=== PATIENT | male | born 1970 | race Caucasian/White ===

== ENCOUNTER 2019-03-14 15:38 | Emergency (ER) | payer BC, OTHER, SELFPAY ==
[2019-03-14] VITALS (7 sets, daily range): BP systolic 106–162; BP diastolic 82–101; PULSE 72–82; RESP 14–20; TEMP 36.5; O2SAT 99–100; BMI 37.3
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
[2019-03-14 15:51] LABS: Bedside Glucose 165 mg/dL (70-110)
[2019-03-14] MEDS: Diphth,Pertuss(Acell),Tet Vac 0.5 ML Vial IM (15:59)
[2019-03-14] MEDS: 0.9% Normal Saline 1,000 ML 1000 ML IV (15:59)
[2019-03-14] MEDS: Morphine 4 MG/ML Syringe IV (15:59)
[2019-03-14] MEDS: Ondansetron 4 MG/2 ML Vial IV (15:59)
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
[2019-03-14 16:26] LABS: Mucous, Urine 0 SEEN /hpf (<or=2+)
[2019-03-14] MEDS: Cefazolin 1 GM/50 ML BAG IV (16:39)
[2019-03-14 16:40] LABS: Color, Urine Yellow (Yellow); Glucose, Dipstick 1000 mg/dl (Normal); Ketone-Dipstick 15 mg/dl (Negative); Leukocyte Esterase-Dipstick Negative /ul (Negative); Nitrite-Dipstick Negative (Negative); Occult Blood-Urine 250 /ul (Negative); Protein-Dipstick 30 mg/dl (Negative); Urine Bilirubin Dipstick Negative (Negative); Urine Clarity Clear (Clear); Urine Urobilinogen Normal (Normal)
[2019-03-14 16:47] LABS: Bacteria RARE /hpf (None Seen); Red Blood Cells-Urine 25-50 SEEN /hpf (0-5); Squamous Epithelial Cells - UA 0-5 SEEN /hpf (0-5); White Blood Cells 0-5 SEEN /hpf (0-5)
[2019-03-14 17:00] LABS: Anion Gap 5 (5-15); BUN 22 mg/dL (7-18); BUN/Creat Ratio 23.8 RATIO (10-20); Calcium,Total 8.5 mg/dL (8.5-10.1); Chloride 109 mmol/L (98-107); Creatinine, Serum 0.92 mg/dL (0.70-1.30); EST Glomerular Filtration Rate 92 mL/min (>60); Est Glom Filt Rate - Afr Amer 111 mL/min (>60); Estimated Creatinine Clearance 100.29 ml/min; Glucose 146 mg/dL (74-106); Potassium 3.3 mmol/L (3.5-5.1); Sodium Level 139 mmol/L (136-145)
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
[2019-03-14 17:07] LABS: Absolute Lymphocyte Count 3.15 X10^3/ul (0.83-4.51); Absolute Neutrophil Count 5.9 X10^3/uL (2.0-7.7); Basophil# 0.04 X10^3/uL; Basophil% 0.4 % (0-1); Hematocrit 44.5 % (40-54); Hemoglobin 14.9 g/dl (13.0-16.5); Lymphocyte # 3.15 X10^3/ul (4.0); Lymphocyte % 31.1 % (19-41); Mean Corp Hgb Conc 33.5 g/gl (32-36); Mean Corpuscular Hgb 31.1 pg (27.0-32.0); Mean Corpuscular Volume 92.9 fL (80-94); Mean Platelet Vol. 10.8 fl (6.2-12.0); Monocyte# 0.86 X10^3/uL; Monocyte% 8.5 % (0-10); Neutrophil # 5.86 X10^3/uL (2.7-7.7); Neutrophil % 57.7 % (47-70); Platelet Count 237 K/mm3 (150-450); RBC Distribution Width CV 13.4 % (11.6-14.6); RBC Distribution Width SD 45.5 fl (35.1-43.9); Red Blood Count 4.79 M/mm3 (4.6-6.2); White Blood Count 10.1 K/mm3 (4.4-11.0)
[2019-03-14 17:08] LABS: POSITIVE COUNT NO; POSITIVE DIFFERENTIAL NO; POSITIVE MORPHOLOGY NO
[2019-03-14 17:22] LABS: International Normalized Ratio 1.1; Prothrombin Time (Protime)PT. 13.5 SECONDS (11.7-14.9)
--- NOTE | 2019-03-14 21:04 | ED.RN ---
OPENED CHART PER REQUEST OF [facility] (JASMYN GUZMAN)REFERENCE FOLLOW UP.
== END 2019-03-14 16:50 | disposition short-term general hospital (02) ==
PROVIDERS: Emergency Provider Emergency Medicine
DX: S02.19XA Other fracture of base of skull, initial encounter for closed fracture (principal); S06.6X9A Traumatic subarachnoid hemorrhage with loss of consciousness of unspecified duration, initial encounter; S61.412A Laceration without foreign body of left hand, initial encounter; S80.01XA Contusion of right knee, initial encounter; V24.4XXA Motorcycle driver injured in collision with heavy transport vehicle or bus in traffic accident, initial encounter; Y93.9 Activity, unspecified; Y92.9 Unspecified place or not applicable; Y99.9 Unspecified external cause status; Z23 Encounter for immunization; E11.9 Type 2 diabetes mellitus without complications; F31.9 Bipolar disorder, unspecified; Z79.84 Long term (current) use of oral hypoglycemic drugs; Z79.899 Other long term (current) drug therapy
CPT/HCPCS: 51702; 70450; 71045; 72125; 73080; 73130; 73560; 74177; 80048; 81001; 82962; 85025; 85610; 90715; 96374; 96375; 99285; J7030; Q9967; A4216; J2405

== ENCOUNTER 2019-03-20 19:45 | Inpatient (IN) | payer BC, OTHER, SELFPAY ==
[2019-03-14 15:39] VITALS: BMI 37.3
[2019-03-20 20:00] VITALS: BP 146/95; PULSE 65; RESP 18; TEMP 36.9; O2SAT 100; BMI 36.9
[2019-03-20 21:40] LABS: Bedside Glucose 351 mg/dL (70-110)
[2019-03-20 22:00] VITALS: BP 142/74
[2019-03-20] MEDS: oxyCODONE 5 MG Tablet PO (22:34)
[2019-03-20] MEDS: Divalproex (ER) 250 MG Tablet 500 MG PO (22:34)
[2019-03-20] MEDS: levETIRAcetam 1,000 MG Tablet 1000 MG PO (22:34)
[2019-03-20] MEDS: MELATONIN 3 MG TABLET 6 MG PO (22:34)
[2019-03-20] MEDS: LORazepam 0.5 MG Tablet PO (22:35)
[2019-03-20 23:26] LABS: Bedside Glucose 279 mg/dL (70-110)
--- NOTE | 2019-03-20 23:58 | PCM.HP.STD ---
History of Present Illness The patient is a 48 year old M [] Past Medical History Allergies niacin Allergy (Verified 03/14/19 15:44) Rash Home Medications: Ambulatory Orders Medication Instructions Recorded Atorvastatin Calcium [Lipitor] 40 mg PO QHS 03/14/19 Divalproex (ER) [Depakote ER] 500 mg PO TID 03/14/19 Dulaglutide [Trulicity] 1.5 mg SQ QWEEK 03/14/19 Levothyroxine Sodium [Unithroid] 300 mcg PO DAILY 03/14/19 Metformin HCl [Metformin HCl ER] 750 mg PO BID 03/14/19 Paroxetine [Paxil] 20 mg PO DAILY 03/14/19 Pioglitazone [Actos] 15 mg PO DAILY 03/14/19 Enoxaparin Sodium [Lovenox] 40 mg SQ 03/20/19 Levetiracetam [Keppra] 1,000 mg PO BID 03/20/19 Melatonin/Pyridoxine HCl (B6) 6 mg PO QHS 03/20/19 [Melatonin 3 mg Tablet] Oxycodone [Oxyir] 5 - 10 mg PO Q6H PRN PRN 03/20/19 Polyethylene Glycol 3350 [Miralax] 17 gm PO DAILY 03/20/19 Senna-Docusate Sodium Tablet 03/20/19 Senna/Docusate Sodium [Senokot-S, 2 tab PO BID 03/20/19 Kathy-Colace] Smoking Status: Former smoker Tobacco Use: Cigarettes - Physical Exam Vital Signs Temp Pulse Resp BP Pulse Ox 98.4 F 65 18 142/74 H 100 03/20/19 20:00 03/20/19 20:00 03/20/19 20:00 03/20/19 22:00 03/20/19 20:00 Oxygen Delivery Method Room Air Weight: 116.698 kg Body Mass Index (BMI) 36.9 Finger Stick Blood Glucose 165 POC Glucose 03/20/19 03/20/19 23:19 21:35 POC Glucose 279 H 351 H
[2019-03-21] MEDS: Insulin Lispro 100 UNIT/ML INSULN.PEN SC ×4 (00:51→21:54)
[2019-03-21] MEDS: Atorvastatin Calcium 40 MG Tablet PO ×2 (00:52→21:54)
[2019-03-21] MEDS: Acetaminophen 325 MG Tablet 650 MG PO ×2 (00:55→10:26)
[2019-03-21] MEDS: LORazepam 0.5 MG Tablet PO ×2 (00:56→21:54)
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
[2019-03-21 02:55] LABS: Bedside Glucose 215 mg/dL (70-110)
[2019-03-21] MEDS: metFORMIN HCl 1,000 MG Tablet 1000 MG PO ×2 (04:06→16:51)
[2019-03-21] MEDS: Scopolamine 1mg/72hr Patch 1 PATCH TD (04:06)
[2019-03-21 06:19] LABS: Hematocrit 44.8 % (40-54); Hemoglobin 15.1 g/dl (13.0-16.5); Mean Corp Hgb Conc 33.7 g/gl (32-36); Mean Corpuscular Hgb 30.9 pg (27.0-32.0); Mean Corpuscular Volume 91.6 fL (80-94); Mean Platelet Vol. 10.4 fl (6.2-12.0); Platelet Count 315 K/mm3 (150-450); RBC Distribution Width CV 13.8 % (11.6-14.6); RBC Distribution Width SD 45.2 fl (35.1-43.9); Red Blood Count 4.89 M/mm3 (4.6-6.2); Scan Indicated on CBC? Y/N NO; White Blood Count 10.3 K/mm3 (4.4-11.0)
[2019-03-21] MEDS: Enoxaparin 40 MG/0.4 ML Syringe SC (06:26)
[2019-03-21] MEDS: Levothyroxine 100 MCG Tablet 300 MCG PO (06:26)
[2019-03-21] MEDS: oxyCODONE 5 MG Tablet PO ×3 (06:26→21:53)
[2019-03-21] MEDS: Divalproex (ER) 250 MG Tablet 500 MG PO ×3 (06:27→21:53)
[2019-03-21 06:28] VITALS: O2SAT 98
[2019-03-21 06:43] LABS: BUN 17 mg/dL (7-18); Creatinine, Serum 0.79 mg/dL (0.70-1.30); Estimated Creatinine Clearance 116.79 ml/min; Glucose 165 mg/dL (74-106)
[2019-03-21 06:44] LABS: Anion Gap 6 (5-15); BUN/Creat Ratio 21.6 RATIO (10-20); Calcium,Total 8.3 mg/dL (8.5-10.1); Chloride 106 mmol/L (98-107); Cholesterol 142 mg/dL (200); EST Glomerular Filtration Rate 111 mL/min (>60); Est Glom Filt Rate - Afr Amer 134 mL/min (>60); High Density Lipoprotein 32 mg/dL; Sodium Level 138 mmol/L (136-145); Triglycerides 197 mg/dL; Very Low Density Lipoprotein 39 mg/dL (5-40)
[2019-03-21 07:10] LABS: Bedside Glucose 159 mg/dL (70-110)
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
[2019-03-21 08:46] VITALS: BP 139/88; PULSE 51; RESP 18; TEMP 36.6; O2SAT 99
[2019-03-21] MEDS: levETIRAcetam 1,000 MG Tablet 1000 MG PO ×2 (10:04→21:54)
[2019-03-21] MEDS: Pioglitazone Hydrochloride 15 MG Tablet PO (10:04)
[2019-03-21] MEDS: Paroxetine 20 MG Tablet PO ×2 (10:04)
[2019-03-21 10:37] LABS: Hemoglobin A1c 6.8 % (4.2-6.3)
[2019-03-21 11:36] LABS: Bedside Glucose 146 mg/dL (70-110)
--- NOTE | 2019-03-21 13:56 | PCM.RU.PYE ---
Admission Information Status Changes from Prescreening?: No changes Identified Actual Problem List:: Skin Intergrity, Pain, ALteration in Cmfrt, Alteration in Sleep, Mobility Impaired, Self Care Deficit, Diabetes, Hyperglycemia, Ineffect.D/C Plan r/t Psy Potential Problem List:: DVT, Bleeding, Infection, UTI, Aspiration, Falls, Skin Integrity, Depression Risk of Complications DVT: LMWH, MICHELLE Hose, Sequential Compression Device Bleeding: Monitor Lab Values, Nursing to Teach Precautions for anti-coagulation therapy., Wound, if applicable, to be assessed every shift., Stroke patients assessed for lethargy or change in status. Infection: Clinical Staff to Monitor for S/S of infection:, S/S of infection include fever, redness, warmth, etc. Urinary Tract Infection: Monitor for frequency, burning, discomfort, or incontinence., Nursing will obtain urine sample for urinalysis and C&S when ordered. Aspiration: Clinical staff will monitor for coughing, drooling, congestion., Speech will evaluate swallowing and dsyphasia., Nursing will monitor patient swallowing during meals. Falls: Patient will be evaluated for Fall Precautions, Patient will be placed on Fall Precautions as indicated per protocol. Skin Breakdown: Nursing will assess skin daily using assessment tool., Nursing will place on Skin Breakdown Precautions as indicated. Pain: Clinical staff will assess patient's pain level per protocol., Medications will be given, if needed, and the pain level reassessed., Other methods: Massage, distraction, decrease stimulus, etc. used PRN. Plan of Care Patient requires physician specializing in physical medicine and rehab oversight to provide close medical supervision of rehab issues including: Pain Management, Sleep Problems, Bowel and Bladder, Medical and co-morbidity Management, DVT prophylaxis, Rehabilitation Leadership, Coordination of treatment team Patient needs Physical Therapy: For a minimum of 1 hour, At least 5 out of 7 days Patient needs Physical Therapy to improve:: Mobility, Mobility, Mobility, Strengthening, Transfers, Stretching, ROM, Endurance, Stairs, Gait, Balance Patient needs Occupational Therapy: For a minimum of 1 hour, At least 5 out of 7 days Patient needs Occupational Therapy to improve ADL's incl.: Eating, Grooming, Bathing, Dressing, Toileting, Toilet transfers, Community Reintegration, Higher functioning activities, Household tasks, Adaptive Equipment, Splinting, Other activities as determined Patient requires 24/ Rehabilitation Nursing for: Pain Issues, Identifying and preventing risk factors, Monitoring and reporting current medical conditions, Assisting with ambulation, transfer, and all ADL's, Teaching patients about disease process and medications, Family teaching, Providing safe environment, Bowel and Bladder Issues, Skin integrity, Medication Management Patient needs Machine Operator Transplanter/ Case Management for: Discharge Planning, Arranging Home Equipment or Services, Family Interventions Patient needs Dietary and Nutrition Services for: Adequate Nutrition, Nutritional Supplements, Nutritional Education Goals Patient will remain: free from falls, or injury at time of discharge. Patient will perform bed mobility at: MOD I level of assist. Patient will complete transfers from bed to chair at: MOD I level of assist. Patient will ambulate: 100 feet, with MOD I assist, with LRD Patient will complete upper body dressing at: MOD I level of assist. Patient will complete lower body dressing at: MOD I level of assist. Patient will complete toileting at: MOD I level of assist. Patient will perform bathing at: MOD I level of assist. Patient will complete grooming at: MOD I level of assist. Patient will complete home management skills at: MOD I level of assist. Patient will achieve: 12 stairs, at MOD I assist Patient will have pain level of: of 3 or less Patient's skin will: remain intact, free from infection. Patient will receive: adequate nutrition. Discharge Planning Pt Prognosis for Sig. Practical Improv. w/in Reasonable Time: Good Anticipated D/C Destination: Home with Outpt Therapy Was Preadmission Assessment Accurate?: Yes
[2019-03-21 17:01] LABS: Bedside Glucose 153 mg/dL (70-110)
[2019-03-21 21:41] VITALS: BP 159/90; PULSE 58; RESP 16; TEMP 36.6; O2SAT 98
[2019-03-21] MEDS: MELATONIN 3 MG TABLET 6 MG PO (21:53)
[2019-03-21] MEDS: Amitriptyline 25 MG Tablet PO (21:54)
[2019-03-22 00:16] LABS: Bedside Glucose 167 mg/dL (70-110)
[2019-03-22 02:51] LABS: Bedside Glucose 175 mg/dL (70-110)
[2019-03-22] MEDS: Enoxaparin 40 MG/0.4 ML Syringe SC (05:18)
[2019-03-22] MEDS: Divalproex (ER) 250 MG Tablet 500 MG PO ×3 (05:19→21:27)
[2019-03-22] MEDS: Levothyroxine 100 MCG Tablet 300 MCG PO (05:19)
[2019-03-22] MEDS: oxyCODONE 5 MG Tablet PO ×3 (05:19→21:26)
[2019-03-22 06:45] VITALS: O2SAT 98
[2019-03-22 06:55] LABS: Bedside Glucose 142 mg/dL (70-110)
[2019-03-22] MEDS: metFORMIN HCl 1,000 MG Tablet 1000 MG PO ×2 (09:08→17:39)
[2019-03-22] MEDS: levETIRAcetam 1,000 MG Tablet 1000 MG PO ×2 (09:08→21:28)
[2019-03-22] MEDS: Pioglitazone Hydrochloride 15 MG Tablet PO (09:08)
[2019-03-22 09:12] VITALS: BP 148/82; PULSE 49; RESP 18; TEMP 36.6; O2SAT 94
[2019-03-22] MEDS: Acetaminophen 325 MG Tablet 650 MG PO (12:38)
[2019-03-22 12:40] LABS: Bedside Glucose 139 mg/dL (70-110)
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
[2019-03-22 17:20] LABS: Bedside Glucose 136 mg/dL (70-110)
[2019-03-22 18:52] VITALS: BP 151/83; PULSE 77; RESP 16; TEMP 36.9; O2SAT 96
[2019-03-22] MEDS: LORazepam 0.5 MG Tablet PO (21:26)
[2019-03-22] MEDS: Amitriptyline 25 MG Tablet PO (21:27)
[2019-03-22] MEDS: MELATONIN 3 MG TABLET 6 MG PO (21:27)
[2019-03-22] MEDS: Atorvastatin Calcium 40 MG Tablet PO (21:28)
[2019-03-22] MEDS: Insulin Lispro 100 UNIT/ML INSULN.PEN SC (21:28)
[2019-03-22 21:31] LABS: Bedside Glucose 216 mg/dL (70-110)
[2019-03-22 22:00] VITALS: RESP 16; O2SAT 97
[2019-03-23 02:50] LABS: Bedside Glucose 163 mg/dL (70-110)
[2019-03-23] MEDS: oxyCODONE 5 MG Tablet PO ×3 (05:42→21:54)
[2019-03-23] MEDS: Enoxaparin 40 MG/0.4 ML Syringe SC (05:43)
[2019-03-23] MEDS: Divalproex (ER) 250 MG Tablet 500 MG PO ×3 (05:43→22:04)
[2019-03-23] MEDS: Levothyroxine 100 MCG Tablet 300 MCG PO (05:43)
[2019-03-23 06:30] VITALS: O2SAT 97
[2019-03-23 06:56] LABS: Bedside Glucose 158 mg/dL (70-110)
[2019-03-23 08:44] VITALS: BP 134/67; PULSE 58; RESP 14; TEMP 36.6; O2SAT 97
[2019-03-23] MEDS: Insulin Lispro 100 UNIT/ML INSULN.PEN SC ×4 (10:19→21:55)
[2019-03-23] MEDS: Paroxetine 20 MG Tablet PO (10:20)
[2019-03-23] MEDS: DULAGLUTIDE 1.5 MG/0.5 ML PEN.INJCTR SQ (10:20)
[2019-03-23] MEDS: metFORMIN HCl 1,000 MG Tablet 1000 MG PO ×2 (10:20→18:00)
[2019-03-23] MEDS: Pioglitazone Hydrochloride 15 MG Tablet PO (10:20)
[2019-03-23] MEDS: Acetaminophen 325 MG Tablet 650 MG PO ×2 (10:31→18:02)
[2019-03-23 12:01] LABS: Bedside Glucose 267 mg/dL (70-110)
[2019-03-23 16:36] LABS: Bedside Glucose 186 mg/dL (70-110)
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
[2019-03-23 19:29] VITALS: BP 136/70; PULSE 74; RESP 18; TEMP 36.9; O2SAT 96
[2019-03-23 21:00] LABS: Bedside Glucose 166 mg/dL (70-110)
[2019-03-23] MEDS: LORazepam 0.5 MG Tablet PO (21:54)
[2019-03-23] MEDS: Amitriptyline 25 MG Tablet PO (21:55)
[2019-03-23] MEDS: Atorvastatin Calcium 40 MG Tablet PO (21:55)
[2019-03-23] MEDS: Senna/Docusate Sodium 1 Tablet 2 TABLET PO (21:55)
[2019-03-23 22:00] VITALS: RESP 18; O2SAT 96
[2019-03-23] MEDS: MELATONIN 3 MG TABLET 6 MG PO (22:04)
[2019-03-24 03:01] LABS: Bedside Glucose 138 mg/dL (70-110)
[2019-03-24] MEDS: Divalproex (ER) 250 MG Tablet 500 MG PO ×3 (06:05→21:00)
[2019-03-24] MEDS: oxyCODONE 5 MG Tablet PO ×3 (06:05→21:01)
[2019-03-24] MEDS: Levothyroxine 100 MCG Tablet 300 MCG PO (06:05)
[2019-03-24] MEDS: Enoxaparin 40 MG/0.4 ML Syringe SC (06:06)
[2019-03-24 07:06] LABS: Bedside Glucose 175 mg/dL (70-110)
[2019-03-24 08:03] VITALS: BP 127/76; PULSE 61; RESP 17; TEMP 36.6; O2SAT 97
[2019-03-24] MEDS: metFORMIN HCl 1,000 MG Tablet 1000 MG PO ×2 (08:25→16:25)
[2019-03-24] MEDS: Paroxetine 20 MG Tablet PO (08:25)
[2019-03-24] MEDS: Insulin Lispro 100 UNIT/ML INSULN.PEN SC ×2 (08:25→21:07)
[2019-03-24] MEDS: Pioglitazone Hydrochloride 15 MG Tablet PO (08:25)
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
--- NOTE | 2019-03-24 10:49 | CASEMGMT ---
Social Work IDT met with patient, spouse and son for Team meeting. Discussed progress in therapy - min. assist with lower body and SBA upper body ADLS - walking w/o device, but having some issues with dizziness and balance. POt has 1520 steps inside the home. Patient was independent, working and driving prior. Goal is to return home with family at prior independence. Rachel is requesting an update 03/25, and continued stay is not guaranteed. Pt and family understand. Will continue to follow for safe discharge planning and will assist with advanced directives, per pt request. Ellie Kc, WEAVING INSTRUCTOR PRODUCT MANAGEMENT INTERNSHIP
[2019-03-24 11:21] LABS: Bedside Glucose 126 mg/dL (70-110)
[2019-03-24] MEDS: Acetaminophen 325 MG Tablet 650 MG PO (13:40)
--- NOTE | 2019-03-24 16:36 | CHAPLAIN ---
Type of Pastoral Visit _x__ Initial Visit ___ Follow-up Visit ___ On-call Visit ___ General Patient Visit ___ Spiritual Assessment ___ Family Conference ___ Bereavement ___ Rapid Response ___ Code Blue ___ Other (describe below) Pastoral Care Referral From _x__ Patient ___ Family ___ Nurse ___ Physician ___ Landscaper ___ Managing Jeweler ___ Other (describe below) Sacrament/Intervention _x__ Active listening ___ Anointing ___ Pentecostalism ___ Bereavement ___ Communion ___ Adrianne exploration ___ ___ Life review _x__ Prayer ___ Reconciliation ___ Sacrament of Sick _x__ Supportive presence ___ Wedding ___ Other (describe below) Pastoral Comments
[2019-03-24 17:05] LABS: Bedside Glucose 117 mg/dL (70-110)
[2019-03-24 18:20] VITALS: BP 160/86; PULSE 95; RESP 16; TEMP 36.3; O2SAT 95
[2019-03-24] MEDS: Amitriptyline 25 MG Tablet PO (21:00)
[2019-03-24] MEDS: Atorvastatin Calcium 40 MG Tablet PO (21:01)
[2019-03-24] MEDS: MELATONIN 3 MG TABLET 6 MG PO (21:01)
[2019-03-24] MEDS: LORazepam 0.5 MG Tablet PO (21:01)
[2019-03-24 21:10] VITALS: BP 154/78
[2019-03-24 21:21] LABS: Bedside Glucose 162 mg/dL (70-110)
[2019-03-24 22:00] VITALS: O2SAT 97
[2019-03-25] MEDS: Acetaminophen 325 MG Tablet 650 MG PO ×2 (02:24→14:08)
[2019-03-25 02:31] LABS: Bedside Glucose 199 mg/dL (70-110)
[2019-03-25] MEDS: Enoxaparin 40 MG/0.4 ML Syringe SC (06:40)
[2019-03-25] MEDS: Levothyroxine 100 MCG Tablet 300 MCG PO (06:40)
[2019-03-25] MEDS: Divalproex (ER) 250 MG Tablet 500 MG PO ×3 (06:40→21:30)
[2019-03-25 07:10] LABS: Bedside Glucose 130 mg/dL (70-110)
[2019-03-25] MEDS: Pioglitazone Hydrochloride 15 MG Tablet PO (08:16)
[2019-03-25] MEDS: Paroxetine 20 MG Tablet PO (08:16)
[2019-03-25] MEDS: metFORMIN HCl 1,000 MG Tablet 1000 MG PO ×2 (08:16→16:58)
[2019-03-25 10:00] VITALS: BP 137/76; PULSE 71; RESP 16; TEMP 36.7; O2SAT 98
--- NOTE | 2019-03-25 10:24 | CASEMGMT ---
Insurance: Clinical continued stay review faxed this day. Auth # [id number].
[2019-03-25] MEDS: oxyCODONE 5 MG Tablet PO ×2 (11:09→21:28)
[2019-03-25] MEDS: Insulin Lispro 100 UNIT/ML INSULN.PEN SC ×2 (12:01→16:58)
[2019-03-25 12:06] LABS: Bedside Glucose 177 mg/dL (70-110)
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
[2019-03-25 16:25] LABS: Bedside Glucose 157 mg/dL (70-110)
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
[2019-03-25 19:39] VITALS: BP 128/86; PULSE 98; RESP 17; TEMP 36.6; O2SAT 97
[2019-03-25 21:25] LABS: Bedside Glucose 129 mg/dL (70-110)
[2019-03-25] MEDS: MELATONIN 3 MG TABLET 6 MG PO (21:27)
[2019-03-25] MEDS: Atorvastatin Calcium 40 MG Tablet PO (21:27)
[2019-03-25] MEDS: Amitriptyline 25 MG Tablet PO (21:28)
[2019-03-25 22:00] VITALS: PULSE 98; RESP 18; O2SAT 100
[2019-03-26] MEDS: Enoxaparin 40 MG/0.4 ML Syringe SC (06:30)
[2019-03-26] MEDS: Levothyroxine 100 MCG Tablet 300 MCG PO (06:30)
[2019-03-26] MEDS: Acetaminophen 325 MG Tablet 650 MG PO ×2 (06:30→21:05)
[2019-03-26] MEDS: Divalproex (ER) 250 MG Tablet 500 MG PO ×3 (06:30→21:08)
[2019-03-26 07:06] LABS: Bedside Glucose 158 mg/dL (70-110)
[2019-03-26 07:32] VITALS: BP 135/85; PULSE 68; RESP 18; TEMP 36.6; O2SAT 98
[2019-03-26] MEDS: metFORMIN HCl 1,000 MG Tablet 1000 MG PO ×2 (08:06→17:18)
[2019-03-26] MEDS: Insulin Lispro 100 UNIT/ML INSULN.PEN SC ×2 (08:06→21:07)
[2019-03-26] MEDS: oxyCODONE 5 MG Tablet PO ×2 (08:06→14:11)
[2019-03-26] MEDS: Paroxetine 20 MG Tablet PO (08:06)
[2019-03-26] MEDS: Pioglitazone Hydrochloride 15 MG Tablet PO (08:06)
--- NOTE | 2019-03-26 09:00 | NURSING ---
Addendum entered by Lana Rojas 03/26/19 09:41: Original Note: Called Neurosurgery office and they are not recommending patient to follow up
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
[2019-03-26 12:21] LABS: Bedside Glucose 138 mg/dL (70-110)
[2019-03-26 16:50] LABS: Bedside Glucose 139 mg/dL (70-110)
[2019-03-26 19:00] VITALS: BP 136/83; PULSE 109; RESP 16; TEMP 36.5; O2SAT 97
[2019-03-26] MEDS: MELATONIN 3 MG TABLET 6 MG PO (21:07)
[2019-03-26] MEDS: Atorvastatin Calcium 40 MG Tablet PO (21:07)
[2019-03-26] MEDS: Amitriptyline 25 MG Tablet PO (21:08)
[2019-03-26 22:30] LABS: Bedside Glucose 154 mg/dL (70-110)
[2019-03-27 03:42] LABS: Bedside Glucose 155 mg/dL (70-110)
[2019-03-27 06:45] LABS: Bedside Glucose 136 mg/dL (70-110)
[2019-03-27] MEDS: Acetaminophen 325 MG Tablet 650 MG PO ×2 (06:46→14:53)
[2019-03-27] MEDS: Levothyroxine 100 MCG Tablet 300 MCG PO (06:46)
[2019-03-27] MEDS: Divalproex (ER) 250 MG Tablet 500 MG PO ×3 (06:47→20:28)
[2019-03-27] MEDS: Enoxaparin 40 MG/0.4 ML Syringe SC (06:50)
[2019-03-27 07:41] VITALS: BP 137/80; PULSE 71; RESP 16; TEMP 36.7; O2SAT 96
[2019-03-27] MEDS: Pioglitazone Hydrochloride 15 MG Tablet PO (07:45)
[2019-03-27] MEDS: metFORMIN HCl 1,000 MG Tablet 1000 MG PO ×2 (07:45→17:39)
[2019-03-27] MEDS: Paroxetine 20 MG Tablet PO (07:45)
--- NOTE | 2019-03-27 08:00 | CT_ITS ---
STUDY: CT BRAIN WITHOUT CONTRAST REASON FOR EXAM: Male, 48 years old. RADIATION DOSAGE (If Supplied By Facility): CTDIvol = ( 60.81 ) mGy, DLP = ( 1158.30 ) mGycm TECHNIQUE: Transaxial CT imaging of the brain was performed without administration of intravenous contrast material. Individualized dose optimization techniques were used for this CT. COMPARISON: March 14, 2019 FINDINGS: Again noted and displaced fracture involving the petrous bone on the left side with minimal fluid within the anterior mastoid air cells. This is better identified than the previous examination. The previously described subarachnoid hemorrhage on the left side is no longer seen. There is now noted hemorrhagic contusion involving the right frontal lobe with vasogenic edema, a new finding since the previous examination. Otherwise the ventricular system and cerebral sulci are unremarkable. The orbits and sinuses are clear. CT/Brain/Head without Contrast IMPRESSION: Hemorrhagic contusion involving the right frontal lobe a new finding since the last study. Undisplaced fracture of the petrous bone on the left Resolution of the subarachnoid hemorrhage Electronically Signed: Pedrito Salas, at 11:20 EDT Tel , Service support ,
--- NOTE | 2019-03-27 08:30 | NURSING ---
off floor to ct of brain
--- NOTE | 2019-03-27 08:45 | NURSING ---
back to floor from ct. shabbir in ct aware to make cd rom for f/u appt.
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
[2019-03-27 12:01] LABS: Bedside Glucose 115 mg/dL (70-110)
--- NOTE | 2019-03-27 14:40 | NURSING ---
Back to floor from Dr Arreaga appointment. No reports or new orders were sent back with pt, but per pt if right ear is still bothering him in 1 month to f/u with Dr Arreaga at that time. No treatment to left ear done at this time, will need to f/u with Dr Arreaga in 3 months (approx Jun) to evaluate hearing loss and treatment at that time.
--- NOTE | 2019-03-27 15:23 | NURSING ---
CT results faxed to Dr Berkowitz, [facility] Neurosurgeon. . Pre Jerica's request.
[2019-03-27 17:16] LABS: Bedside Glucose 223 mg/dL (70-110)
[2019-03-27] MEDS: Insulin Lispro 100 UNIT/ML INSULN.PEN SC ×2 (17:39→20:27)
--- NOTE | 2019-03-27 19:00 | NURSING ---
Reviewed and agree with SHEET METAL APPRENTICE'S FIMS and charting
[2019-03-27 19:51] VITALS: BP 135/62; PULSE 94; RESP 16; TEMP 37.1; O2SAT 97
[2019-03-27] MEDS: oxyCODONE 5 MG Tablet PO (20:25)
[2019-03-27] MEDS: Atorvastatin Calcium 40 MG Tablet PO (20:26)
[2019-03-27] MEDS: MELATONIN 3 MG TABLET 6 MG PO (20:26)
[2019-03-27] MEDS: Amitriptyline 25 MG Tablet PO (20:28)
[2019-03-27 22:51] LABS: Bedside Glucose 179 mg/dL (70-110)
[2019-03-28 03:16] LABS: Bedside Glucose 164 mg/dL (70-110)
[2019-03-28] MEDS: Acetaminophen 325 MG Tablet 650 MG PO ×2 (05:44→15:02)
[2019-03-28] MEDS: Enoxaparin 40 MG/0.4 ML Syringe SC (05:45)
[2019-03-28] MEDS: Divalproex (ER) 250 MG Tablet 500 MG PO ×3 (05:45→20:51)
[2019-03-28] MEDS: Levothyroxine 100 MCG Tablet 300 MCG PO (05:45)
[2019-03-28 07:05] LABS: Bedside Glucose 191 mg/dL (70-110)
[2019-03-28] MEDS: Pioglitazone Hydrochloride 15 MG Tablet PO (07:30)
[2019-03-28] MEDS: metFORMIN HCl 1,000 MG Tablet 1000 MG PO ×2 (07:30→17:50)
[2019-03-28] MEDS: Paroxetine 20 MG Tablet PO (07:30)
[2019-03-28] MEDS: Insulin Lispro 100 UNIT/ML INSULN.PEN SC ×3 (07:30→22:13)
[2019-03-28 07:37] VITALS: BP 123/70; PULSE 62; RESP 14; TEMP 36.6; O2SAT 98
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
[2019-03-28] MEDS: oxyCODONE 5 MG Tablet PO (09:58)
--- NOTE | 2019-03-28 10:07 | NURSING ---
off unit to ortho appointment with .
--- NOTE | 2019-03-28 15:04 | NURSING ---
Back to floor from Dr Horta appointment. Hard cast inplace to left lower arm and hand. Follow up appointment made for 04/10/[address] Horta. aware.
[2019-03-28 17:35] LABS: Bedside Glucose 328 mg/dL (70-110)
[2019-03-28 20:29] VITALS: BP 147/87; PULSE 97; RESP 18; TEMP 36.6; O2SAT 97
[2019-03-28] MEDS: Atorvastatin Calcium 40 MG Tablet PO (20:52)
[2019-03-28] MEDS: Amitriptyline 25 MG Tablet PO (20:52)
[2019-03-28] MEDS: MELATONIN 3 MG TABLET 6 MG PO (20:57)
[2019-03-28 22:01] LABS: Bedside Glucose 224 mg/dL (70-110)
[2019-03-29] MEDS: Levothyroxine 100 MCG Tablet 300 MCG PO (06:29)
[2019-03-29] MEDS: Divalproex (ER) 250 MG Tablet 500 MG PO ×3 (06:29→20:11)
[2019-03-29] MEDS: Enoxaparin 40 MG/0.4 ML Syringe SC (06:30)
[2019-03-29 06:32] VITALS: BP 102/62; PULSE 74; RESP 15; TEMP 36.4; O2SAT 97
[2019-03-29 06:45] LABS: Bedside Glucose 172 mg/dL (70-110)
[2019-03-29] MEDS: Insulin Lispro 100 UNIT/ML INSULN.PEN SC ×3 (08:02→20:13)
[2019-03-29] MEDS: Paroxetine 20 MG Tablet PO (08:02)
[2019-03-29] MEDS: Pioglitazone Hydrochloride 15 MG Tablet PO (08:02)
[2019-03-29] MEDS: metFORMIN HCl 1,000 MG Tablet 1000 MG PO ×2 (08:03→17:14)
[2019-03-29] MEDS: Acetaminophen 325 MG Tablet 650 MG PO ×2 (08:06→20:12)
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
[2019-03-29 12:00] LABS: Bedside Glucose 124 mg/dL (70-110)
[2019-03-29 17:05] LABS: Bedside Glucose 189 mg/dL (70-110)
--- NOTE | 2019-03-29 18:07 | NURSING ---
Reviewed and agree with [employer]'s FIMS and charting
[2019-03-29 19:58] VITALS: BP 137/73; PULSE 96; RESP 16; TEMP 36.6; O2SAT 98
[2019-03-29] MEDS: Atorvastatin Calcium 40 MG Tablet PO (20:10)
[2019-03-29] MEDS: MELATONIN 3 MG TABLET 6 MG PO (20:11)
[2019-03-29] MEDS: Amitriptyline 25 MG Tablet PO (20:12)
[2019-03-29] MEDS: LORazepam 0.5 MG Tablet PO (20:12)
[2019-03-29 20:21] LABS: Bedside Glucose 209 mg/dL (70-110)
[2019-03-30] MEDS: Enoxaparin 40 MG/0.4 ML Syringe SC (05:41)
[2019-03-30] MEDS: Levothyroxine 100 MCG Tablet 300 MCG PO (05:41)
[2019-03-30] MEDS: Divalproex (ER) 250 MG Tablet 500 MG PO ×3 (05:42→20:20)
[2019-03-30 06:21] LABS: Bedside Glucose 153 mg/dL (70-110)
[2019-03-30 07:50] VITALS: BP 137/80; PULSE 80; RESP 18; TEMP 36.5; O2SAT 94
[2019-03-30] MEDS: Insulin Lispro 100 UNIT/ML INSULN.PEN SC ×3 (08:07→16:53)
[2019-03-30] MEDS: Pioglitazone Hydrochloride 15 MG Tablet PO (08:08)
[2019-03-30] MEDS: Paroxetine 20 MG Tablet PO (08:08)
[2019-03-30] MEDS: metFORMIN HCl 1,000 MG Tablet 1000 MG PO ×2 (08:08→16:53)
[2019-03-30] MEDS: DULAGLUTIDE 1.5 MG/0.5 ML PEN.INJCTR SQ (08:18)
[2019-03-30 11:56] LABS: Bedside Glucose 212 mg/dL (70-110)
[2019-03-30] MEDS: Acetaminophen 325 MG Tablet 650 MG PO ×2 (11:58→20:20)
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
[2019-03-30 17:06] LABS: Bedside Glucose 203 mg/dL (70-110)
--- NOTE | 2019-03-30 18:55 | NURSING ---
Reviewed and agree with LOCKMAKER's FIMS and charting.
[2019-03-30 20:12] VITALS: BP 123/54; PULSE 96; RESP 14; TEMP 36.6; O2SAT 96
[2019-03-30] MEDS: Atorvastatin Calcium 40 MG Tablet PO (20:20)
[2019-03-30] MEDS: MELATONIN 3 MG TABLET 6 MG PO (20:20)
[2019-03-30] MEDS: Amitriptyline 25 MG Tablet PO (20:21)
[2019-03-30 20:45] LABS: Bedside Glucose 126 mg/dL (70-110)
[2019-03-31 06:40] LABS: Bedside Glucose 129 mg/dL (70-110)
[2019-03-31] MEDS: Enoxaparin 40 MG/0.4 ML Syringe SC (06:41)
[2019-03-31] MEDS: Levothyroxine 100 MCG Tablet 300 MCG PO (06:42)
[2019-03-31 07:35] VITALS: BP 134/63; PULSE 73; RESP 16; TEMP 36.4; O2SAT 93
[2019-03-31] MEDS: metFORMIN HCl 1,000 MG Tablet 1000 MG PO ×2 (07:44→17:28)
[2019-03-31] MEDS: Pioglitazone Hydrochloride 15 MG Tablet PO (07:44)
[2019-03-31] MEDS: Paroxetine 20 MG Tablet PO (07:44)
[2019-03-31] MEDS: Acetaminophen 325 MG Tablet 650 MG PO ×2 (07:47→22:15)
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
--- NOTE | 2019-03-31 12:04 | CASEMGMT ---
Addendum entered by Ellie Kc 03/31/19 14:59: Spoke with pt and he would like to continue ST at [facility], but the waitlist is long. Will make the referral to add him to the waitlist, but to be seen sooner, pt agreed to [facility]. Referral made to [facility]. No further DC needs. Original Note: Social Work IDT met with pt for Team Meeting. Pt requesting DC. Pt doing very well in therapy - walking without a device for long distances, requiring only supervision for ADLs. ST recommending outpatient ST. Pt agreeable. [facility] has a waitlist. Pt to decide which facility he would like outpatient ST. Will f/u. DC set for 04/01.
[2019-03-31 12:26] LABS: Bedside Glucose 85 mg/dL (70-110)
[2019-03-31] MEDS: Divalproex (ER) 250 MG Tablet 500 MG PO ×2 (14:19→22:09)
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
--- NOTE | 2019-03-31 15:09 | CASEMGMT ---
Social Work PHQ-9 completed. No issues noted. Resources declined. Ellie Kc, FAST FOOD SERVICES MANAGER TEST FACILITY ENGINEER
--- NOTE | 2019-03-31 16:54 | CHAPLAIN ---
Type of Pastoral Visit ___ Initial Visit _x__ Follow-up Visit ___ On-call Visit ___ General Patient Visit ___ Spiritual Assessment ___ Family Conference ___ Bereavement ___ Rapid Response ___ Code Blue ___ Other (describe below) Pastoral Care Referral From _x__ Patient ___ Family ___ Nurse ___ Physician ___ Director Medical Science ___ Director Of Services ___ Other (describe below) Sacrament/Intervention _x__ Active listening ___ Anointing ___ Oriental Orthodox ___ Bereavement ___ Communion _x__ Adrianne exploration ___ _x__ Life review _x__ Prayer ___ Reconciliation ___ Sacrament of Sick _x__ Supportive presence ___ Wedding ___ Other (describe below) Pastoral Comments
[2019-03-31 17:11] LABS: Bedside Glucose 181 mg/dL (70-110)
[2019-03-31] MEDS: Insulin Lispro 100 UNIT/ML INSULN.PEN SC (17:29)
[2019-03-31 20:40] VITALS: BP 119/54; PULSE 90; RESP 18; TEMP 36.4; O2SAT 94
[2019-03-31 21:25] LABS: Bedside Glucose 143 mg/dL (70-110)
[2019-03-31 22:00] VITALS: RESP 18
[2019-03-31] MEDS: LORazepam 0.5 MG Tablet PO (22:08)
[2019-03-31] MEDS: MELATONIN 3 MG TABLET 6 MG PO (22:08)
[2019-03-31] MEDS: Amitriptyline 25 MG Tablet PO (22:09)
[2019-03-31] MEDS: Atorvastatin Calcium 40 MG Tablet PO (22:09)
[2019-04-01] MEDS: Enoxaparin 40 MG/0.4 ML Syringe SC (05:35)
[2019-04-01] MEDS: Levothyroxine 100 MCG Tablet 300 MCG PO (05:36)
[2019-04-01] MEDS: Divalproex (ER) 250 MG Tablet 500 MG PO (05:36)
[2019-04-01 06:36] LABS: Bedside Glucose 140 mg/dL (70-110)
[2019-04-01 07:22] VITALS: BP 111/62; PULSE 78; RESP 16; TEMP 36.6; O2SAT 97
[2019-04-01] MEDS: Pioglitazone Hydrochloride 15 MG Tablet PO (08:01)
[2019-04-01] MEDS: Paroxetine 20 MG Tablet PO (08:01)
[2019-04-01] MEDS: metFORMIN HCl 1,000 MG Tablet 1000 MG PO (08:01)
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
[2019-04-01 10:25] VITALS: BP 130/66; PULSE 87; RESP 16; TEMP 36.7; O2SAT 95
--- NOTE | 2019-04-01 10:25 | NURSING ---
discharged home with . discharged instructions and medications reviewed. denies question and concerns.
--- NOTE | 2019-04-01 12:32 | CASEMGMT ---
Insurance Updated insurance on patient discharge on 04/01/19 to home. Auth#[id number] MAYORGA, AVINASH
== END 2019-04-01 10:25 | disposition home or self-care (01) | DRG 950 ==
PROVIDERS: Internal Medicine; Nurse Practitioner Family; Admitting Provider Psychiatry & Neurology Neurology; Visit Provider Internal Medicine
DX: S06.6X9D Traumatic subarachnoid hemorrhage with loss of consciousness of unspecified duration, subsequent encounter (principal); V24.9 Unspecified motorcycle rider injured in collision with heavy transport vehicle or bus in traffic accident; F31.9 Bipolar disorder, unspecified; E03.9 Hypothyroidism, unspecified; H91.93 Unspecified hearing loss, bilateral; S62.608D Fracture of unspecified phalanx of other finger, subsequent encounter for fracture with routine healing; E11.9 Type 2 diabetes mellitus without complications; F41.9 Anxiety disorder, unspecified; S02.19XD Other fracture of base of skull, subsequent encounter for fracture with routine healing; E66.01 Morbid (severe) obesity due to excess calories; Z87.891 Personal history of nicotine dependence; Z68.36 Body mass index [BMI] 36.0-36.9, adult; Z71.3 Dietary counseling and surveillance; H35.62 Retinal hemorrhage, left eye
CPT/HCPCS: 36415; 70450; 80048; 80061; 82962; 83036; 85027; 92507; 92523; 97110; 97112; 97116; 97162; 97163; 97166; 97530; 97535; 97802

== ENCOUNTER → 2019-04-22 14:02 | Outpatient (CLI) | payer BC, OTHER, SELFPAY ==
[2019-03-20 20:00] VITALS: BMI 36.9
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
== END ==
PROVIDERS: Referring Provider Nurse Practitioner Family; Visit Provider Nurse Practitioner Family
DX: I60.9 Nontraumatic subarachnoid hemorrhage, unspecified (principal)
CPT/HCPCS: 70450

== ENCOUNTER 2019-09-04 09:00 | Outpatient (RCR) | payer BC, OTHER, SELFPAY ==
[2019-03-20 20:00] VITALS: BMI 36.9
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
--- NOTE | 2019-05-28 10:14 | HP.OTREVAL ---
MARK LADD, It has been my pleasure to treat AUSTIN LARA over the last 11 visits for left hand. Please see the progress note below for an update on the occupational therapy plan of care! Subjective: pt states he contimes to have hand pain- pt states he returns to DrChar in 4 weeks. Objective/Function: left MCP IF 70* flex PIP 95. left MCP MF 70* flex PIP 85. left MCP RF 70* flex PIP-30/80*. left MCP LF 70* flex PIP 10/-70. pt demo improvements with ROM and strength- but continues to struggle with end range ROM and pain. Plan Frequency: 1-2x /Week Duration: 6 Weeks Plan: cont- to increase ROM/decrease pian Goals - Goals Goal:: PT will demo an increase in director personal strength by 20# to increase independent with basic occupations of daily living to return pt to PLOF by D/C. Pt will demo an increase in lateral and tripod pinch by 2# to increase pts independent with opening baggies, containers at OF by D/C. Goal:: pt will demo the ability to perform a composite fist to increase use of left hand for ADLs and IADLS by d/c Goal:: Pt will report pain no greater than 1/10 with use of affected hand with BADLs and IADLs by d/c. Goal:: Pt will demo the ability to form a composite fist to return to performing BADLs and IADLS at OF by d/c. Pt will demo the ability to form a composite fist to hold and receive 10 coins without dropping coins/ and coin manipulation/money mtg. tasks by D/C. Anticipated Interventions Anticipated Interventions: A/AAROM/PROM, Strengthening, Edema Control, Scar Care, Triggerpoint Release, Wound Care, Modalities, Orthoses Please do not hesitate to contact me at [phone] by phone or if you have questions or concerns regarding this new plan of care! Sincerely, Jessica Wolf, OTR/L, CHT
--- NOTE | 2019-06-11 13:14 | HP.OTREVAL ---
MARK LADD, It has been my pleasure to treat AUSTIN LARA over the last 16 visits for left hand. Please see the progress note below for an update on the occupational therapy plan of care! Subjective: pt states hand continues to be stiff in the mornings- has to work his hand before he can make a composite fist- pt worried about going back to work. Objective/Function: pt demo the ability to form a composite fist but reports pain with tight fist 4/10. pt has been ed. that hand injuries are painful, and finger will feel stiff even up to about 6 months or longer. pt demo understanding. see below for measurements. left MCP IF -35/70* flex PIP 0/95. left MCP MF -10/70* flex PIP -5/85. left MCP RF -5/70* flex PIP-30/80*. left MCP LF -5/75* flex PIP -10/-80. pt LF DIP is demo no active ext. -60/85* flex. right cognos bi developer strength 70# left cognos bi developer strength is 50#. pt demo a increase in left functional strength. left lateral pinch 22# right is 26# left tripod pinch 16# right is 18# pt is right hand dominant. Plan Frequency: 1-2x /Week Duration: 6 Weeks Plan: cont with PRE to cont. with UB and cognos bi developer strength Goals - Goals Goal:: PT will demo an increase in cognos bi developer strength by 20# to increase independent with basic occupations of daily living to return pt to PLOF by D/C. Pt will demo an increase in lateral and tripod pinch by 2# to increase pts independent with opening baggies, containers at PLOF by D/C. Goal:: pt will demo the ability to perform a composite fist to increase use of left hand for ADLs and IADLS by d/c Goal:: Pt will report pain no greater than 1/10 with use of affected hand with BADLs and IADLs by d/c. Goal:: Pt will demo the ability to form a composite fist to return to performing BADLs and IADLS at PLOF by d/c. Pt will demo the ability to form a composite fist to hold and receive 10 coins without dropping coins/ and coin manipulation/money mtg. tasks by D/C. Anticipated Interventions Anticipated Interventions: A/AAROM/PROM, Strengthening, Edema Control, Scar Care, Triggerpoint Release, Wound Care, Modalities, Orthoses Please do not hesitate to contact me at [phone] by phone or if you have questions or concerns regarding this new plan of care! Sincerely, Jessica Wolf, OTR/L, CHT
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
--- NOTE | 2019-07-30 10:49 | HP.PTDCSUM ---
HP - PT D/C Summary It has been my pleasure to treat AUSTIN LARA under orders from MARK LADD, for the diagnosis of vertigo for a total of 2 visit(s). Discharge Date: 07/30/19 Please see the following information for a summary of their discharge status. - Subjective Subjective: No dizzyness in last week. Doing well adn activities pretty normal - Overall Improvement % Improvement: 100 - Objective Objective/Function: - B hallpike, - roll test. No dizzyness with VOR walking or imbalance today. - Goals Goal 1:: abolish vertigo sitting up and position change for 3 days. Goal Progress: Goal Met Goal 2:: Pt feel 100% back to normal as far as dizzyness goes. Goal Progress: Goal Met Goal 3:: <10% DHI Goal Progress: Goal Met - Plan Plan: d/c - D/C Information Discharge Comments: Pt without dizzyness adn doing well. Will contact therapist or doctor if dizzyness returns. If there are questions or concerns regarding this patient's physical therapy, please feel free to call me at [phone]. Thank you for the referral of this patient. Sincerely, Nestor De Jesus, DPT, OCS, CSCS
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
== END 2019-09-04 19:00 | disposition home or self-care (01) ==
LOC: OT 09:00
DX: S62.615D Displaced fracture of proximal phalanx of left ring finger, subsequent encounter for fracture with routine healing (principal); Z98.890 Other specified postprocedural states
CPT/HCPCS: 92507; 92523; 97035; 97110; 97140; 97161; 97166; 97530; 97760